=== PATIENT | male | born 1975 | race African-American/Black ===

== ENCOUNTER 2018-10-18 05:14 | Emergency (ER) | payer SELFPAY | END 2018-10-18 07:17 | disposition left against medical advice (07) | LOC: ER 05:14 | DX: S09.90XA Unspecified injury of head, initial encounter (principal); Z53.21 Procedure and treatment not carried out due to patient leaving prior to being seen by health care provider; X58.XXXA Exposure to other specified factors, initial encounter; Y93.89 Activity, other specified; Y92.89 Other specified places as the place of occurrence of the external cause; Y99.8 Other external cause status | CPT/HCPCS: A4217; Z7610 ==

== ENCOUNTER 2018-10-18 07:39 | Emergency (ER) | payer SELFPAY ==
[~2018-10-18] VITALS: Ht 170.2 cm; Wt 75.0 kg
[2018-10-18 09:48] VITALS: BP 130/80
== END 2018-10-18 09:57 | disposition home or self-care (01) ==
LOC: ER 07:48
DX: S01.01XA Laceration without foreign body of scalp, initial encounter (principal); S09.90XA Unspecified injury of head, initial encounter; Y08.89XA Assault by other specified means, initial encounter; F12.10 Cannabis abuse, uncomplicated; Z98.890 Other specified postprocedural states; Y93.89 Activity, other specified; Y92.89 Other specified places as the place of occurrence of the external cause; Y99.8 Other external cause status
CPT/HCPCS: 70450; 99284; Z7610

== ENCOUNTER 2018-10-19 11:10 | Emergency (ER) | payer SELFPAY ==
[~2018-10-19] VITALS: Ht 170.2 cm; Wt 62.0 kg
[2018-10-19] MEDS ORDERED: HYDROCODONE/ACETAMINOPHEN 5/325MG TABLET PO ONE (12:00)
[2018-10-19 12:42] VITALS: BP 130/94
== END 2018-10-19 12:52 | disposition home or self-care (01) ==
LOC: ER 11:10
DX: S70.01XA Contusion of right hip, initial encounter (principal); Y04.0XXA Assault by unarmed brawl or fight, initial encounter; Y93.89 Activity, other specified; Y92.89 Other specified places as the place of occurrence of the external cause; R03.0 Elevated blood-pressure reading, without diagnosis of hypertension; F12.90 Cannabis use, unspecified, uncomplicated; F17.210 Nicotine dependence, cigarettes, uncomplicated
CPT/HCPCS: 73522; 99283

== ENCOUNTER 2018-10-26 00:04 | Emergency (ER) | payer SELFPAY ==
[~2018-10-26] VITALS: Ht 172.7 cm; Wt 63.0 kg
[2018-10-26] MEDS ORDERED: KETOROLAC 60MG/2ML VIAL IM STA (04:05)
[2018-10-26 06:15] VITALS: BP 113/73
[2018-10-26 06:30] LABS: CLARITY URINE CLEAR (CLEAR); COLOR URINE YELLOW (YELLOW); KETONES URINE TRACE (NEGATIVE); LEUKOCYTE ESTERASE URINE TRACE (NEGATIVE); NITRITE URINE NEGATIVE (NEGATIVE); OCCULT BLOOD URINE NEGATIVE (NEGATIVE); PROTEIN URINE NEGATIVE (NEGATIVE)
== END 2018-10-26 06:37 | disposition home or self-care (01) ==
LOC: ER 00:04
DX: S70.02XA Contusion of left hip, initial encounter (principal); Y04.0XXA Assault by unarmed brawl or fight, initial encounter; W03.XXXA Other fall on same level due to collision with another person, initial encounter; Y93.89 Activity, other specified; Y92.511 Restaurant or cafe as the place of occurrence of the external cause; F12.90 Cannabis use, unspecified, uncomplicated
CPT/HCPCS: 73522; 81003; 96372; 99284; J1885; Z7610

== ENCOUNTER 2020-06-07 20:41 | Emergency (ER) | payer SELFPAY ==
[~2020-06-07] VITALS: Ht 190.5 cm; Wt 62.0 kg
[2020-06-07] MEDS ORDERED: HYDROCODONE/ACETAMINOPHEN 5/325MG TABLET PO ONE (21:00)
[2020-06-07 21:21] LABS: CLARITY URINE CLEAR (CLEAR); COLOR URINE YELLOW (YELLOW); KETONES URINE NEGATIVE (NEGATIVE); LEUKOCYTE ESTERASE URINE NEGATIVE (NEGATIVE); NITRITE URINE NEGATIVE (NEGATIVE); OCCULT BLOOD URINE NEGATIVE (NEGATIVE); PROTEIN URINE NEGATIVE (NEGATIVE); SPECIFIC GRAVITY URINE 1.006 (1.005-1.030); UROBILINOGEN URINE 0.2 E.U./dL (0.2-1.0)
[2020-06-07 22:04] LABS: BASOPHILS % 0.6 % (0.0-2.0); EOSINOPHILS % 7.7 % (0.0-5.0); HEMATOCRIT. 45.9 % (42.0-52.0); HEMOGLOBIN. 15.3 g/dL (14.0-18.0); LYMPHOCYTES % 31.8 % (20.0-50.0); MEAN CORPUSCULAR HEMOGLOBIN 29.5 pg (28.0-32.0); MEAN CORPUSCULAR VOLUME 88.2 fL (80.0-94.0); MEAN PLATELET VOLUME 8.5 fl (7.4-10.4); MONOCYTES % 5.8 % (2.0-8.0); NEUTROPHILS % 54.1 % (40.0-76.0); PLATELET 250 x1000/uL (130-400); RED CELL DISTRIBUTION WIDTH 14.4 % (11.6-14.6)
[2020-06-07 22:14] LABS: CHLORIDE 106 mEq/L (98-107)
[2020-06-07 22:35] VITALS: BP 144/80
== END 2020-06-07 23:05 | disposition home or self-care (01) ==
LOC: ER 20:41
DX: R10.11 Right upper quadrant pain (principal); I25.2 Old myocardial infarction; F12.10 Cannabis abuse, uncomplicated; Z95.0 Presence of cardiac pacemaker
CPT/HCPCS: 36415; 71045; 76705; 80053; 81003; 85025; 99285

== ENCOUNTER 2023-11-07 10:47 | Emergency (ER) | payer OTHER ==
[~2023-11-07] VITALS: Ht 167.6 cm; Wt 59.0 kg
[2023-11-07 10:56] VITALS: PULSE 71
[2023-11-07 11:00] VITALS: BP 152/97; TEMP 98.2; O2SAT 98
[2023-11-07 13:29] VITALS: RESP 17
[2023-11-07] MEDS: IBUPROFEN 600MG TABLET PO ONE (13:29)
== END 2023-11-07 13:31 | disposition home or self-care (01) ==
LOC: ER 10:47
DX: M79.641 Pain in right hand (principal); F12.10 Cannabis abuse, uncomplicated; I25.2 Old myocardial infarction
CPT/HCPCS: 29125; 73130; 99283

== ENCOUNTER 2023-12-22 01:34 | Emergency (ER) | payer OTHER ==
[~2023-12-22] VITALS: Ht 157.5 cm; Wt 56.2 kg
[2023-12-22 01:46] VITALS: O2SAT 99
[2023-12-22] MEDS: KETOROLAC 15MG/ML VIAL IM ONE (04:49)
[2023-12-22] MEDS: KETOROLAC 15MG/ML VIAL IM NR (04:49)
[2023-12-22 06:24] VITALS: BP 142/76; PULSE 86; RESP 20; TEMP 98; O2SAT 100
== END 2023-12-22 06:31 | disposition home or self-care (01) ==
LOC: ER 01:42
DX: S69.81XA Other specified injuries of right wrist, hand and finger(s), initial encounter (principal); I10 Essential (primary) hypertension; I25.2 Old myocardial infarction; F12.90 Cannabis use, unspecified, uncomplicated; Z98.890 Other specified postprocedural states; Y08.89XA Assault by other specified means, initial encounter; Y93.89 Activity, other specified; Y92.89 Other specified places as the place of occurrence of the external cause; Y99.8 Other external cause status
CPT/HCPCS: 99283; 73130; 29125; 96372; J1885

== ENCOUNTER 2024-09-27 13:51 | Emergency (ER) | payer OTHER ==
[~2024-09-27] VITALS: Ht 165.1 cm; Wt 79.0 kg
[2024-09-27 14:06] VITALS: O2SAT 100
[2024-09-27] MEDS: KETOROLAC 30MG/ML VIAL IM ONE (14:50)
[2024-09-27] MEDS ORDERED: KETO10TA2 MT (15:28)
[2024-09-27 15:46] VITALS: BP 145/92; PULSE 59; RESP 18; TEMP 36.9; O2SAT 100
== END 2024-09-27 16:34 | disposition home or self-care (01) ==
LOC: ER 13:51
DX: S62.312A Displaced fracture of base of third metacarpal bone, right hand, initial encounter for closed fracture (principal); I10 Essential (primary) hypertension; I21.29 ST elevation (STEMI) myocardial infarction involving other sites; X58.XXXA Exposure to other specified factors, initial encounter; Y93.89 Activity, other specified; Y92.89 Other specified places as the place of occurrence of the external cause; Y99.8 Other external cause status
CPT/HCPCS: 99283; 73130; 29125; 96372; J1885; A6449

== ENCOUNTER 2024-10-01 11:33 | Emergency (ER) | payer OTHER ==
[~2024-10-01] VITALS: Ht 165.1 cm; Wt 63.0 kg
[~2024-10-01 11:33] MED LIST: KETO10TA2 MT
[2024-10-01 11:40] VITALS: BP 150/99; TEMP 36.9; O2SAT 99
[2024-10-01 11:50] VITALS: PULSE 72; RESP 19; O2SAT 100
[2024-10-01] MEDS: IBUPROFEN 400MG TABLET PO ONE (12:37)
[2024-10-01] MEDS ORDERED: NAPR-1176 MT (13:33)
== END 2024-10-01 14:00 | disposition home or self-care (01) ==
LOC: ER 11:33
DX: M79.641 Pain in right hand (principal); I25.2 Old myocardial infarction; I10 Essential (primary) hypertension; F12.10 Cannabis abuse, uncomplicated
CPT/HCPCS: 29125; 99283